=== PATIENT | female | born 1970 | race Two or more races ===

== ENCOUNTER → 2024-10-16 | Outpatient (CLI) | payer MEDICAID, SELFPAY ==
--- NOTE | 2024-10-16 14:00 | XR_ITS ---
Examination: Breast ultrasound complete, bilateral Exam date and time: October 16, 2024 1445 hrs. Indications: Palpable lumps in breast one year, 9:00 nodule right breast 8 mm on sonogram October 10, 2023 Technique: Real-time grayscale ultrasonographic imaging bilateral breasts, including all 4 quadrants as well as nipple retroareolar and axillary regions. Findings: Sonographic images right breast 9:00 nodule circumscribed 8 x 6 mm 9:00 nodule circumscribed 4 x 4 millimeter 9:00 nodule circumscribed 8 x 5 mm Sonographic images left breast 12:00 nodule lobular margins 12 x 10 mm Impression: BI-RADS Category 3: Probably benign findings One additional 6 month bilateral breast sonography follow-up is needed to document stability of multiple nodules described above
--- NOTE | 2024-10-16 15:15 | XR_ITS ---
Examination: Diagnostic digital mammography, bilateral Computer aided detection 3-D breast Tomosynthesis, bilateral Date and time of exam: 10/16/2024, 3:09 PM Comparisons: September 2015 through February 2023 Indications:Palpable abnormality O'clock right breast with intermittent breast pain. Technique: Nonmagnified MLO, CC views of the breasts to been obtained, reconstructed from 3-D Tomosynthesis images. R2 computer aided detection program utilized for evaluation of suspicious masses and/or abnormal calcifications. 3-D Tomosynthesis images obtained. Findings: The breasts are heterogeneously dense, which may obscure small masses. 8 mm oval circumscribed mass outer breast 9:00 demonstrates greater than two-year stability and appears benign. Stable right postbiopsy marker clip. Otherwise, no evidence of abnormal masses or suspicious calcifications. Impression: BI-RADS category 2: Benign findings Recommend 1 year follow-up mammogram
--- NOTE | 2024-10-16 15:30 | XR_ITS ---
Examination: Retroperitoneal ultrasound, complete Technique: Multiple high resolution grayscale images of the retroperitoneum obtained, including kidneys and bladder. Exam date and time:October 16, 2024 1458 hrs. Indications: Hematuria episodes one year Findings: Right kidney 10.9 cm cortex 1.5 cm Left kidney 10.2 cm cortex 1.8 cm Mild bilateral renal parenchymal scar formation. No renal calculi No bladder mass or bladder calculi Bladder prevoid volume 224 cc Impression: Mild bilateral renal parenchymal scar formation No renal calculi or hydronephrosis
== END | disposition home or self-care (01) ==
PROVIDERS: Referring Provider Family Medicine; Visit Provider Family Medicine
DX: R92.323 Mammographic fibroglandular density, bilateral breasts (principal); N28.89 Other specified disorders of kidney and ureter; N63.25 Unspecified lump in the left breast, overlapping quadrants; N63.15 Unspecified lump in the right breast, overlapping quadrants
CPT/HCPCS: 76641; 76770; 77062; 77066; G0279

== ENCOUNTER 2025-01-03 08:17 | Emergency (ER) | payer MEDICAID, SELFPAY ==
[2025-01-03 08:35] VITALS: BP 122/81; PULSE 60; RESP 16; TEMP 37.2; O2SAT 98; BMI 24.9
--- NOTE | 2025-01-03 09:06 | PD.EDRME ---
Rapid Medical Screening Exam RME Arrival date/time: 01/03/25 08:17 This is a 54 female that comes in with complaints of diffuse abdominal pain burning and some lower back pain. Patient states she has had this pain for over a month. Patient was recently treated for H. pylori and finished antibiotic treatment but states she still having abdominal pain. patient denies fever chills, nausea vomiting diarrhea. I have greeted and performed a focused initial assessment of this patient. Initial appropriate labs ordered at this time. A comprehensive ED assessment and evaluation of the patient and analysis of all test and completion of medical decision making process will be conducted by additional ED provider. Chief Complaint: Abdominal Pain Time Seen by Provider: 01/03/25 08:35 Vital signs: Vital Signs Temperature 98.9 F 01/03/25 08:35 Pulse Rate 60 01/03/25 08:35 Respiratory Rate 16 01/03/25 08:35 Blood Pressure 122/81 01/03/25 08:35 Pulse Oximetry (%) 98 01/03/25 08:35 Oxygen Delivery Method Room Air 01/03/25 08:35
[2025-01-03] MEDS: MG HYD/AL HYD/SIME (Maalox Reg) SUSP 30 ML UDC PO (09:12)
[2025-01-03] MEDS: LIDOCAINE VISCOUS 2% 15 ML UDC PO (09:12)
[2025-01-03 09:59] LABS: Collection Type, Urine Voided
[2025-01-03 10:15] LABS: Bilirubin,Urine Negative (Negative); Blood,Urine 1+ (Negative); Clarity,Urine Clear (Clear/Hazy); Color,Urine Lt-Yellow (Lt Yel-Yel); Culture Indicated,Urine Not Indicated; Glucose, Urine Negative (Negative); Ketones,Urine Negative (Negative); Leukocyte Esterase,Urine Negative (Negative); Nitrite,Urine Negative (Negative); PH,Urine 7.5 (5.0-7.0); Protein,Urine Trace (Neg - Trace); RBC,Urine 7 /hpf (0-3); Specific Gravity,Urine 1.016 (1.001-1.035); Squamous Epithelial Cell,Urine < 1 /hpf (0-5); Urobilinogen,Urine Negative mg/dL (0.0-1.0); WBC,Urine 1 /hpf (0-5)
--- NOTE | 2025-01-03 11:11 | EDNOTE_ITS ---
ED Abdominal Pain RME/HPI General Chief Complaint: Abdominal Pain Stated complaint: ABDOMINAL PAIN Time seen by provider: 01/03/25 08:35 Arrival date/time: 01/03/25 08:17 This is a 54 female that comes in with complaints of diffuse abdominal pain burning and some lower back pain. Patient states she has had this pain for over a month. Patient was recently treated for H. pylori and finished antibiotic treatment but states she still having abdominal pain. patient denies fever chills, nausea vomiting diarrhea. RME / HPI RME / HPI narrative: 01/03/25 08:17 This is a 54 female that comes in with complaints of diffuse abdominal pain b urning and some lower back pain. Patient states she has had this pain for over a month. Patient was recently treated for H. pylori and finished antibiotic treatment but states she still having abdominal pain. patient denies fever chills, nausea vomiting diarrhea. I have greeted and performed a focused initial assessment of this patient. Initial appropriate labs ordered at this time. A comprehensive ED assessment and evaluation of the patient and analysis of all test and completion of medical decision making process will be conducted by additional ED provider. Related Data Previous Rx's ?Medication ?Instructions ?Recorded hydrocodone 5 mg-acetaminophen 325 1 tab PO Q6H #20 ta bs 11/02/18 mg tablet ([place]) vflbqlzszs-xnbrwahxixoog-mlvlezgd 1 cap PO TID PRN viktor n #30 caps 11/11/20 50 mg-300 mg-40 mg capsule (Fioricet) sodium chloride 0.65 % nasal spray 2 spray intranasal QID PRN nasal 11/11/20 aerosol (Saline Nasal) congestion #60 mL acetaminophen-caffeine 500 mg-65 1 tab PO Q8H PRN pain #30 tabs 01/28/24 mg tablet (Excedrin Tension Headache) meclizine 25 mg tablet 25 mg PO QDAY PRN dizziness #10 01/28/24 tabs omeprazole 20 mg capsule,delayed 20 mg PO QDAY #30 cap s 01/03/25 release Allergies Allergy/AdvReac Type Severity Reaction Status Date / Time No Known Allergies Allergy Verified 01/03/25 08:20 Course Orders Category Date Time Status Urinalysis, C/S if Indicated Stat Lab 01/03/25 09:15 Completed Lidocaine 2% Viscous [Xylocaine 2% Viscous] Med 01/03/25 09:05 Discontinued 15 ml PO X1 ONE mg Hyd/Al Hyd/Yefri Susp [Maalox Susp] Med 01/03/25 09:05 Discontinued 30 ml PO X1 ONE Vital Signs Vital signs: Vital Signs Temperature 98.9 F 01/03/25 08:35 Pulse Rate 60 01/03/25 08:35 Respiratory Rate 16 01/03/25 08:35 Blood Pressure 122/81 01/03/25 08:35 Pulse Oximetry (%) 98 01/03/25 08:35 Oxygen Delivery Method Room Air 01/03/25 08:35 Abdominal Pain MDM MDM Narrative MDM Narrative:: Patient feels better with GI cocktail. I talked to patient at at length about H. pylori and the possibility of having a gastric ulcer. patient only had a certain amount of omeprazole given we will continue to have patient take omeprazole and have her follow-up with her primary provider. Patient continues to have stomach irritation. I also talked to patient at length about blood in her urine. Patient states that there is been multiple times that she has had blood in her urine but no one does any follow-up. I explained to patient the importance of follow-up for blood in her urine. I explained to patient that she may need to follow-up with a urologist and have a cystoscopy. Patient verbalizes understanding. Patient comfortable plan of care. Patient told to come back to the emergency room if symptoms change or worsen Medications / Prescriptions Medication administrations:: Medication Administration History Discontinued Medications Al Hydrox/Mg Hydrox/Simethicone (Mg Hyd/Al Hyd/Yefri (Maalox Reg) Susp 30 Ml Udc) 30 ml PO X1 ONE Stop: 01/03/25 09:06 Last Admin: 01/03/25 09:12 Dose: 30 ml Documented By: ANDREAS Lidocaine HCl (Lidocaine Viscous 2% 15 Ml Udc) 15 ml PO X1 ONE Stop: 01/03/25 09:06 Last Admin: 01/03/25 09:12 Dose: 15 ml Documented By: ANDREAS Discharge Plan Plan Patient Disposition: HOME (Self Care) Patient condition on transfer: Stable Prescriptions/Referrals Prescriptions/Med Rec: New omeprazole 20 mg capsule,delayed release(DR/EC) 20 mg PO QDAY Qty: 30 0RF No Action hydrocodone-acetaminophen [[place]] 5-325 mg tablet 1 tab PO Q6H MDD 4 Qty: 20 0RF ycxgasfaqj-ufrpvwstcpapb-hzvb [Fioricet] 50-300-40 mg capsule 1 cap PO TID PRN (Reason: pain) Qty: 30 0RF sodium chloride [Saline Nasal] 0.65 % aerosol,spray 2 spray intranasal QID PRN (Reason: nasal congestion) Qty: 60 0RF Excedrin Tension Headache 500-65 mg tablet 1 tab PO Q8H PRN (Reason: pain) Qty: 30 0RF meclizine 25 mg tablet 25 mg PO QDAY PRN (Reason: dizziness) Qty: 10 0RF Referrals: Elo Vital FNP-C [Primary Care Provider] - In 1 week Problem List Clinical Impression: Gastritis, Hematuria Patient/Caregiver Discharge Instructions Discharge Activity: activity as tolerated Education Materials: ED Hematuria, ED PEPTIC ULCER vs GASTRITIS Additional Instructions: Dannie un alona con gregory medico de cabecera en las proximas 24-48 horas. Regrese a la julito de emergencias si hay evidencia de que los signos o sintomas empeoran. Today there was blood in the urine please make sure you follow-up with primary provider to have this checked out again. May need to see a urologist for continued blood in urine. Print Language: Azerbaijani Stand Alone Forms: Joann Award Info., Patient Portal Info Letter PA/ASHOK Supervising Physician BARRIE/ASHOK Supervising Physician: jacqui
== END 2025-01-03 11:17 | disposition home or self-care (01) ==
PROVIDERS: Nurse Practitioner Family; Emergency Provider Emergency Medicine; PCP Family Medicine
DX: K29.70 Gastritis, unspecified, without bleeding (principal); R31.9 Hematuria, unspecified
CPT/HCPCS: 81001; 99283; J3490; A9270